=== PATIENT | female | born 1950 | race Caucasian/White ===

== ENCOUNTER 2020-08-22 15:00 | Inpatient (IN) ==
[2020-08-22] MEDS ORDERED: SODIUM CHLORIDE 0.9% 1000ML 2,000 ML IV ONE (16:01)
--- NOTE | 2020-08-22 16:05 | Emergency Department Note ---
Impression & Plan Acute Lyme disease, Fever and chills, Tick-borne disease ED Provider Note NAME: BURKE OSEGUERA AGE: 69 SEX: F : 1950 ARRIVES VIA: Walk-In INFORMANT: Patient ED PROVIDER(S): Hieu Barksdale DO CHIEF COMPLAINT: Shaking chills HPI: Patient is a 69-year-old female who presents the ER for not feeling well. Symptoms started on Monday with dry heaving. Patient was having diarrhea and vomiting over 24 hours. This resolved on Monday. Fevers as high as 102. Patient had tick bite about 3 weeks ago. She is now having chills. Patient was placed on Doxy and took a full dose on Monday and Monday. Patient does admit to a headache. No neck stiffness. No chest pain or shortness of breath. No cough or runny nose. No other exacerbating or remitting factors. ROS: See above HPI for pertinent positives & negatives. A total of 10 systems reviewed and were otherwise negative. PAST MEDICAL HISTORY:See Below PAST SURGICAL HISTORY:See Below FAMILY HISTORY:See Below SOCIAL HISTORY:See Below HOME MEDICATIONS:See Below ALLERGIES:See Below VITALS:See Below PHYSICAL EXAMINATION: GENERAL: Sitting up in bed, alert, well appearing, well nourished, no distress, non-toxic EYE EXAM: normal conjunctiva. PERRL and EOM's grossly intact. OROPHARYNX: no exudate, no erythema, lips, buccal mucosa, and tongue normal and mucous membranes are moist NECK: supple, no nuchal rigidity, no adenopathy, non-tender LUNGS: Clear to auscultation. Normal chest wall mechanics HEART: no murmurs, S1 normal and S2 normal ABDOMEN: abdomen soft, non-tender, normo-active bowel sounds, no masses, no rebound or guarding. BACK: Back is symmetrical on inspection and there is no deformity, no midline tenderness, no CVA tenderness. SKIN: no rashes and no bruising UPPER EXTREMITIES: upper extremities are grossly normal. LOWER EXTREMITIES: No pitting edema. NEURO EXAM: Normal sensorium, cranial nerves II-XII grossly intact, normal speech, no gross weakness of arms, no gross weakness of legs. MEDICAL DECISION MAKING: Patient is a six 9-year-old female who presents the ER for the above-stated complaint. IV was damaged but obtained. Labs showed no significant leukocytosis or anemia. INR unremarkable. BMP along with LFTs bilirubin and lipase is unremarkable. UA with a small amount of blood. Lyme was positive. Covid was negative. Patient was having intermittent shaking chills. CT of the abdomen pelvis was reviewed from previous presentation which showed questionable Pylo. UA was reviewed at that time was clean. Patient was updated bedside. She was given IV fluids Toradol Zofran and some Tylenol. She was discussed with the hospitalist after IV Rocephin. No nuchal rigidity. She does have a headache although I do favor this consistent with the tickborne illness as opposed to meningitis or encephalitis. Triage Nursing notes reviewed. Limited review of prior medical records performed Vital Signs: reviewed and remarkable for HTN Differential diagnosis: Differential diagnosis includes etiologies such as sepsis, UTI, pneumonia, metabolic, electrolyte abnormalities, cardiac sources, intracerebral event, toxicologic, neurological, as well as others were entertained. ER treatment provided: See below Diagnostics interpreted by me: ECG: Sinus rhythm rate 93 Normal axis T wave inversion in the inferior leads QTC 417 Septal Q waves Cardiac Monitoring: An order was placed for continuous cardiac monitoring. The monitor shows a rate of 90 with sinus rhythm. Laboratory studies: As stated above and show below. Imaging studies: See below Consultation(s): Discussed with hospitalist for further evaluation Procedures: none Critical Care: None Past Med/Surg History Social History Smoking Status: Never smoker Preferred Language: Khmer Feels Safe at Home: Yes Allergies Allergies Allergy/AdvReac Type Severity Reaction Status Date / Time erythromycin base Allergy Unknown HIVES Verified 08/20/20 23:40 Penicillins Allergy Unknown hives Verified 08/20/20 23:40 Sulfa (Sulfonamide Allergy Unknown HIVES Verified 08/20/20 23:40 Antibiotics) HONEY BEES Allergy Unknown HIVES Uncoded 08/20/20 23:40 Home Meds Home Medications Medication Instructions Recorded Confirmed hydrochlorothiazide 12.5 mg PO QAM 08/20/20 08/22/20 ibuprofen 800 mg PO TID 08/20/20 08/22/20 lisinopril 5 mg PO QAM 08/20/20 08/22/20 ondansetron 8 mg PO Q8 PRN 08/20/20 08/22/20 Previous Rx's Medication Instructions Recorded doxycycline hyclate 100 mg PO BID 21 Days #42 tab 08/21/20 Results & Data (ED) Vital Signs Vital Signs - 24 hr 08/22/20 15:03 08/22/20 17:02 08/22/20 18:21 Temperature 37.4 C Temperature Source Temporal Artery Scan Pulse Rate 93 H 82 Pulse Rate from SpO2 Sensor Respiratory Rate 20 20 Respiratory Effort / Characteristics Respiratory Depth Respiratory Pattern Blood Pressure 168/78 H 167/90 H Blood Pressure [Right Arm] 168/78 H Blood Pressure Mean 108 Blood Pressure Mean [Right Arm] 108 Blood Pressure Position Sitting Pulse Oximetry 100 94 Oxygen Delivery Method Room Air Room Air Sepsis Recent Fever Within 48 Hours No Sepsis New/Unexplained Change in Mental Status No Sepsis Action Taken by Nursing No Action Required 08/22/20 19:00 08/22/20 20:07 08/22/20 21:00 Temperature 38.5 C H Temperature Source Oral Pulse Rate 76 76 Pulse Rate from SpO2 Sensor 77 77 Respiratory Rate 22 22 Respiratory Effort / Characteristics Non-Labored Spontaneous Respiratory Depth Normal Respiratory Pattern Regular Blood Pressure 154/63 H 149/71 H Blood Pressure [Right Arm] Blood Pressure Mean 93 97 Blood Pressure Mean [Right Arm] Blood Pressure Position Pulse Oximetry 96 95 Oxygen Delivery Method Room Air Room Air Room Air Sepsis Recent Fever Within 48 Hours Sepsis New/Unexplained Change in Mental Status Sepsis Action Taken by Nursing Laboratory Data Result diagrams: 08/22/20 16:55 08/22/20 16:55 Lab Results 08/22/20 08/22/20 08/22/20 Range/Units 16:55 16:55 16:55 WBC 9.17 (4.8-10.8) K/uL RBC 3.85 L (4.2-5.4) M/uL Hgb 12.5 (12.0-16.0) g/dL Hct 37.0 (37-47) % MCV 96.1 (80-100) fL MCH 32.5 (25-34) pg MCHC 33.8 (32-36) g/dL RDW Std Deviation 43.3 (36.4-46.3) fL RDW Coeff of [place] 12.3 (11.5-14.5) % Plt Count 285 (130-400) K/uL MPV 9.6 (7.4-10.4) fL Immature Gran % (Auto) 0.2 % Neut % (Auto) 76.0 % Lymph % (Auto) 15.2 % Mineral % (Auto) 8.2 % Eos % (Auto) 0.2 % Baso % (Auto) 0.2 % Neut # (Auto) 6.97 H (1.4-6.5) K/uL Lymph # (Auto) 1.39 (1.2-3.4) K/uL Mineral # (Auto) 0.75 H (0.11-0.59) K/uL Eos # (Auto) 0.02 (0-0.5) K/uL Baso # (Auto) 0.02 (0-0.2) K/uL Immature Gran # (Auto) 0.02 (0.00-0.02) K/uL PT 10.3 (9.0-12.0) Seconds INR 1.0 (0.9-1.1) APTT 24.0 (21.0-31.0) Seconds PTT Ratio 0.9 Sodium 135 L D (136-145) mmol/L Potassium 3.6 (3.5-5.1) mmol/L Chloride 100 (98-107) mmol/L Carbon Dioxide 29 (21-32) mmol/L Anion Gap 6.0 (3-11) BUN 11 (7-18) mg/dl Creatinine 1.02 (0.6-1.2) mg/dl Est Cr Clr Drug Dosing 51.4 ml/min Est GFR ( Amer) 65.9 ml/min Est GFR (Non-Af Amer) 56.9 ml/min BUN/Creatinine Ratio 10.6 (10-20) Glucose 109 H (70-99) mg/dl Lactate (0.4-2.0) mmol/L Calcium 8.5 (8.5-10.1) mg/dl Magnesium 2.0 (1.8-2.4) mg/dl Total Bilirubin 0.3 (0.2-1) mg/dl AST 12 L (15-37) U/L ALT 17 (12-78) U/L Alkaline Phosphatase 64 (45-117) U/L Total Protein 6.9 (6.4-8.2) gm/dl Albumin 3.6 (3.4-5.0) gm/dl Globulin 3.3 (2.5-4.0) gm/dl Albumin/Globulin Ratio 1.1 (0.9-2) Lipase 162 (73-393) U/L Urine Color Urine Appearance (Clear) Urine pH (4.5-7.5) Ur Specific [place] (1.000-1.030) Urine Protein (Negative) Urine Glucose (UA) (Negative) Urine Ketones (Negative) Urine Blood (Negative) Urine Nitrite (Negative) Urine Bilirubin (Negative) Urine Urobilinogen (Negative) Ur Leukocyte Esterase (Negative) Urine WBC (Auto) (0-5) /hpf Urine RBC (Auto) (0-4) /hpf U Hyaline Cast (Auto) (0-5) /lpf U Epithel Cells (Auto) (0-5) /lpf Urine Bacteria (Auto) (Negative) Anaplasma Smear Lyme Disease IgG Ab (Negative) Lyme Disease IgM Ab (Negative) COVID-19 Eval Order SARS-CoV-2 (PCR) (Negative) 08/22/20 08/22/20 08/22/20 Range/Units 16:55 16:55 16:57 WBC (4.8-10.8) K/uL RBC (4.2-5.4) M/uL Hgb (12.0-16.0) g/dL Hct (37-47) % MCV (80-100) fL MCH (25-34) pg MCHC (32-36) g/dL RDW Std Deviation (36.4-46.3) fL RDW Coeff of Savana (11.5-14.5) % Plt Count (130-400) K/uL MPV (7.4-10.4) fL Immature Gran % (Auto) % Neut % (Auto) % Lymph % (Auto) % Mineral % (Auto) % Eos % (Auto) % Baso % (Auto) % Neut # (Auto) (1.4-6.5) K/uL Lymph # (Auto) (1.2-3.4) K/uL Mineral # (Auto) (0.11-0.59) K/uL Eos # (Auto) (0-0.5) K/uL Baso # (Auto) (0-0.2) K/uL Immature Gran # (Auto) (0.00-0.02) K/uL PT (9.0-12.0) Seconds INR (0.9-1.1) APTT (21.0-31.0) Seconds PTT Ratio Sodium (136-145) mmol/L Potassium (3.5-5.1) mmol/L Chloride (98-107) mmol/L Carbon Dioxide (21-32) mmol/L Anion Gap (3-11) BUN (7-18) mg/dl Creatinine (0.6-1.2) mg/dl Est Cr Clr Drug Dosing ml/min Est GFR ( Amer) ml/min Est GFR (Non-Af Amer) ml/min BUN/Creatinine Ratio (10-20) Glucose (70-99) mg/dl Lactate 1.7 (0.4-2.0) mmol/L Calcium (8.5-10.1) mg/dl Magnesium (1.8-2.4) mg/dl Total Bilirubin (0.2-1) mg/dl AST (15-37) U/L ALT (12-78) U/L Alkaline Phosphatase (45-117) U/L Total Protein (6.4-8.2) gm/dl Albumin (3.4-5.0) gm/dl Globulin (2.5-4.0) gm/dl Albumin/Globulin Ratio (0.9-2) Lipase (73-393) U/L Urine Color Yellow Urine Appearance Clear (Clear) Urine pH 7.0 (4.5-7.5) Ur Specific [place] 1.012 (1.000-1.030) Urine Protein Negative (Negative) Urine Glucose (UA) Negative (Negative) Urine Ketones Negative (Negative) Urine Blood Trace H (Negative) Urine Nitrite Negative (Negative) Urine Bilirubin Negative (Negative) Urine Urobilinogen Negative (Negative) Ur Leukocyte Esterase Negative (Negative) Urine WBC (Auto) 0 (0-5) /hpf Urine RBC (Auto) 0-4 (0-4) /hpf U Hyaline Cast (Auto) 0 (0-5) /lpf U Epithel Cells (Auto) 5-10 H (0-5) /lpf Urine Bacteria (Auto) Negative (Negative) Anaplasma Smear See Comment Lyme Disease IgG Ab (Negative) Lyme Disease IgM Ab (Negative) COVID-19 Eval Order SARS-CoV-2 (PCR) (Negative) 08/22/20 08/22/20 08/22/20 Range/Units 17:01 18:52 18:52 WBC (4.8-10.8) K/uL RBC (4.2-5.4) M/uL Hgb (12.0-16.0) g/dL Hct (37-47) % MCV (80-100) fL MCH (25-34) pg MCHC (32-36) g/dL RDW Std Deviation (36.4-46.3) fL RDW Coeff of Savana (11.5-14.5) % Plt Count (130-400) K/uL MPV (7.4-10.4) fL Immature Gran % (Auto) % Neut % (Auto) % Lymph % (Auto) % Mineral % (Auto) % Eos % (Auto) % Baso % (Auto) % Neut # (Auto) (1.4-6.5) K/uL Lymph # (Auto) (1.2-3.4) K/uL Mineral # (Auto) (0.11-0.59) K/uL Eos # (Auto) (0-0.5) K/uL Baso # (Auto) (0-0.2) K/uL Immature Gran # (Auto) (0.00-0.02) K/uL PT (9.0-12.0) Seconds INR (0.9-1.1) APTT (21.0-31.0) Seconds PTT Ratio Sodium (136-145) mmol/L Potassium (3.5-5.1) mmol/L Chloride (98-107) mmol/L Carbon Dioxide (21-32) mmol/L Anion Gap (3-11) BUN (7-18) mg/dl Creatinine (0.6-1.2) mg/dl Est Cr Clr Drug Dosing ml/min Est GFR ( Amer) ml/min Est GFR (Non-Af Amer) ml/min BUN/Creatinine Ratio (10-20) Glucose (70-99) mg/dl Lactate (0.4-2.0) mmol/L Calcium (8.5-10.1) mg/dl Magnesium (1.8-2.4) mg/dl Total Bilirubin (0.2-1) mg/dl AST (15-37) U/L ALT (12-78) U/L Alkaline Phosphatase (45-117) U/L Total Protein (6.4-8.2) gm/dl Albumin (3.4-5.0) gm/dl Globulin (2.5-4.0) gm/dl Albumin/Globulin Ratio (0.9-2) Lipase (73-393) U/L Urine Color Urine Appearance (Clear) Urine pH (4.5-7.5) Ur Specific [place] (1.000-1.030) Urine Protein (Negative) Urine Glucose (UA) (Negative) Urine Ketones (Negative) Urine Blood (Negative) Urine Nitrite (Negative) Urine Bilirubin (Negative) Urine Urobilinogen (Negative) Ur Leukocyte Esterase (Negative) Urine WBC (Auto) (0-5) /hpf Urine RBC (Auto) (0-4) /hpf U Hyaline Cast (Auto) (0-5) /lpf U Epithel Cells (Auto) (0-5) /lpf Urine Bacteria (Auto) (Negative) Anaplasma Smear Lyme Disease IgG Ab Negative (Negative) Lyme Disease IgM Ab Positive A (Negative) COVID-19 Eval Order Covid19 at [facility] SARS-CoV-2 (PCR) NEGATIVE (Negative) Administered Medications Discontinued Medications Acetaminophen (Acetaminophen 500 Mg Tab) 1,000 mg PO NOW STA Stop: 08/22/20 18:12 Last Admin: 08/22/20 20:33 Dose: 1,000 mg Documented by: [id number] Famotidine (Famotidine 20mg/5ml Iv Push) 20 mg IV ONE STA Stop: 08/22/20 18:12 Last Admin: 08/22/20 18:48 Dose: 20 mg Documented by: [id number] Sodium Chloride (Nss 1000ml) 2,000 mls @ 999 mls/hr IV .Q2H1M ONE Stop: 08/22/20 18:01 Last Infusion: 08/22/20 20:11 Dose: 0 mls/hr Documented by: [id number] Admin: 08/22/20 17:00 Dose: 999 mls/hr Documented by: [id number] Ceftriaxone Sodium (Rocephin) 1,000 mg in 50 mls @ 100 mls/hr IV NOW STA Stop: 08/22/20 18:54 Last Infusion: 08/22/20 20:11 Dose: 0 mls/hr Documented by: [id number] Admin: 08/22/20 18:48 Dose: 100 mls/hr Documented by: [id number] Ketorolac Tromethamine (Ketorolac Tromethamine 15 Mg/Ml Vial) 10 mg IV NOW ONE Stop: 08/22/20 18:26 Last Admin: 08/22/20 18:49 Dose: 10 mg Documented by: [id number] Ondansetron HCl (Ondansetron Inj 2 Mg/Ml 2 Ml Vial) 4 mg IV NOW STA Stop: 08/22/20 19:47 Last Admin: 08/22/20 20:10 Dose: 4 mg Documented by: [id number] Imaging Data Radiologist's Impression: Chest X-Ray 08/22/20 16:02 XR chest 1V portable CLINICAL HISTORY: SEPSIS COMPARISON STUDY: 08/20/2020 FINDINGS: The cardiac and mediastinal contours are normal. There is no evidence of focal pulmonary consolidation. There is no evidence of failure. No pleural effusions are visualized.[ IMPRESSION: No active disease in the chest. ACT 112: Negative or not required by law. Electronically signed by: Sonny Blum M.D. 08/22/2020 5:55 PM Discharge Plan Visit Data Chief Complaint: Illness Stated Complaint: +lymes,shaking,nausea,cramping in legs/feet ED Provider: Hieu Barksdale Discharge Problem: Acute Lyme disease, Fever and chills, Tick-borne disease Patient Disposition: Home - Self-Care Discharge Instructions Interventions: ED Discharge Assessment Last Done: 08/22/20 18:21 Forms Stand Alone Forms: [facility], Virtual Emergency Department, Important Visit Information Prescriptions Prescriptions: No Action ibuprofen 800 mg tablet 800 mg PO TID RF: 0 ondansetron 8 mg tablet,disintegrating 8 mg PO Q8 PRN (Reason: Nausea) RF: 0 hydrochlorothiazide 12.5 mg capsule 12.5 mg PO QAM RF: 0 lisinopril 5 mg tablet 5 mg PO QAM RF: 0 doxycycline hyclate 100 mg tablet 100 mg PO BID 21 Days Qty: 42 RF: 0 Referrals Referrals: Jarrod Shi MD [Primary Care Provider] -
[2020-08-22 17:12] LABS: Basophils # (auto) 0.02 K/uL (0-0.2); Basophils % (auto) 0.2 %; Eosinophils # (auto) 0.02 K/uL (0-0.5); Eosinophils % (auto) 0.2 %; Hemoglobin 12.5 g/dL (12.0-16.0); Immature Granulocytes # (auto) 0.02 K/uL (0.00-0.02); Immature Granulocytes % (auto) 0.2 %; Lymphocytes # (auto) 1.39 K/uL (1.2-3.4); Lymphocytes % (auto) 15.2 %; Mean Corpuscular Hemoglobin 32.5 pg (25-34); Mean Corpuscular Hgb Conc 33.8 g/dL (32-36); Mean Corpuscular Volume 96.1 fL (80-100); Mean Platelet Volume 9.6 fL (7.4-10.4); Monocytes # (auto) 0.75 K/uL (0.11-0.59); Monocytes % (auto) 8.2 %; Neutrophils # (auto) 6.97 K/uL (1.4-6.5); Platelet Count 285 K/uL (130-400); RDW Coefficient of Variation 12.3 % (11.5-14.5); RDW Standard Deviation 43.3 fL (36.4-46.3); Red Blood Count 3.85 M/uL (4.2-5.4); White Blood Count 9.17 K/uL (4.8-10.8)
[2020-08-22 17:30] LABS: Appearance Urine Clear (Clear); Bacteria Urine Automated Negative (Negative); Bilirubin Urine Negative (Negative); Blood Urine Trace (Negative); Cast Urine Automated 0 /lpf (0-5); Color Urine Yellow; Glucose Urine UA Negative (Negative); Ketones Urine Negative (Negative); Leukocyte Esterase Urine Negative (Negative); Nitrite Urine Negative (Negative); Protein Urine Negative (Negative); RBC Urine Automated 0-4 /hpf (0-4); Specific Gravity Urine 1.012 (1.000-1.030); Urobilinogen Urine Negative (Negative); WBC Urine Automated 0 /hpf (0-5)
[2020-08-22 17:31] LABS: Albumin Level 3.6 gm/dl (3.4-5.0); BUN Creatinine Ratio 10.6 (10-20); Calcium 8.5 mg/dl (8.5-10.1); Creatinine Clr Calc Pharmacy 51.4 ml/min; Est GFR (African American) 65.9 ml/min; Est GFR (Non-African American) 56.9 ml/min; Potassium 3.6 mmol/L (3.5-5.1)
[2020-08-22 17:34] LABS: Albumin Globulin Ratio 1.1 (0.9-2); Bilirubin,Total 0.3 mg/dl (0.2-1); Globulin 3.3 gm/dl (2.5-4.0); Total Protein 6.9 gm/dl (6.4-8.2)
[2020-08-22 17:43] LABS: Partial Thromboplastin Ratio 0.9; Prothrombin Time 10.3 Seconds (9.0-12.0)
--- NOTE | 2020-08-22 17:57 | XRay Report ---
XR chest 1V portable CLINICAL HISTORY: SEPSIS COMPARISON STUDY: 08/20/2020 FINDINGS: The cardiac and mediastinal contours are normal. There is no evidence of focal pulmonary co nsolidation. There is no evidence of failure. No pleural effusions are visualized.[ IMPRESSION: No active disease in the chest. ACT 112: Negative or not required by law. Electronically signed by: Sonny Blum M.D. 08/22/2020 5:55 PM
[2020-08-22] MEDS ORDERED: FAMOTIDINE 20MG/5ML IV PUSH IV STA (18:11)
[2020-08-22] MEDS ORDERED: KETOROLAC TROMETHAMINE 15 MG/ML VIAL IV ONE (18:25)
[2020-08-22] MEDS ORDERED: cefTRIAXone SODIUM 1,000 MG/50 ML BAG IV STA (18:25)
--- NOTE | 2020-08-22 18:45 | History & Physical Report ---
Date of Service August 22, 2020 Assessment & Plan (1) Tick-borne disease: History of tick bite approximately 3 weeks ago. Presented with GI symptoms with diarrhea nausea vomiting for 24 hours, Had high fever, generalized weakness, Was treated with doxycycline, failed outpatient course Will be admitted to medical telemetry, ordered for Lyme titer, anaplasmosis lab work Start patient with IV Rocephin (2) Nausea & vomiting: Possible due to above, IV fluids, start with clear liquid diet, advance as tolerated order for antiemetics (3) Fever and chills: Due to tickborne illness, treatment as outlined above CODE STATUS: Full code Disposition: Expect to be discharged home when medically stable Admission and Anticipated Discharge Date Admission Date: History of Present Illness Chief Complaint: Tick bite/fever, nausea vomiting Primary Care Provider: Jarrod Shi MD Patient is a six 9-year-old female who presents the ER for not feeling well. Symptoms started on Monday with dry heaving. Patient was having diarrhea and vomiting over 24 hours. This resolved on Monday. Fevers as high as 102. Patient had tick bite about 3 weeks ago. She is now having chills. Patient was placed on Doxy and took a full dose on Monday and Monday. Patient does admit to a headache. No neck stiffness. No chest pain or shortness of breath. No cough or runny nose. Allergies Allergy/AdvReac Type Severity Reaction Status Date / Time erythromycin base Allergy Unknown HIVES Verified 08/20/20 23:40 Penicillins Allergy Unknown hives Verified 08/20/20 23:40 Sulfa (Sulfonamide Allergy Unknown HIVES Verified 08/20/20 23:40 Antibiotics) HONEY BEES Allergy Unknown HIVES Uncoded 08/20/20 23:40 Home Medications Medication Instructions Recorded Confirmed Type hydrochlorothiazide 12.5 mg PO QAM 08/20/20 08/22/20 History ibuprofen 800 mg PO TID 08/20/20 08/22/20 History lisinopril 5 mg PO QAM 08/20/20 08/22/20 History ondansetron 8 mg PO Q8 PRN 08/20/20 08/22/20 History doxycycline hyclate 100 mg PO BID 21 Days #42 tab 08/21/20 08/22/20 Rx Past Med/Surg History Social History Smoking Status: Never smoker Preferred Language: Icelandic Feels Safe at Home: Yes Review of Systems Review of Systems: All systems reviewed & are unremarkable except as noted in Subjective Physical Exam Physical Exam: Physical exam: General: No acute distress, alert awake oriented x3 HEENT: PERRLA, EOMI, Heart: Regular S1-S2, no carotid bruit, no JVD, no lower extremity edema Lungs: Clear to auscultate, no wheeze or rales Abdomen: Soft nontender, no organomegaly Extremity: No cyanosis, no deformity, normal strength 5 out of 5 with upper and lower Neuro: No focal neurological deficit normal speech, normal visual field, Motor strength : normal both upper and lower extremity, sensation intact Psych: Alert awake oriented x3, normal affect Results & Data Results & Data ([facility]) Vital Signs (Past 12 Hours) Vital Signs Temp Pulse Resp BP BP Pulse Ox 08/22/20 18:21 82 20 167/90 H 94 08/22/20 17:02 168/78 H 08/22/20 15:03 37.4 C 93 H 20 168/78 H 100 Code Status & VTE Plan VTE Prophylaxis Plan VTE Prophylaxis will be ordered: Yes (1) Nausea & vomiting Vomiting Intractability: non-intractable Vomiting type: unspecified Qualified Code(s): R11.2 - Nausea with vomiting, unspecified
[2020-08-22] MEDS: ACETAMINOPHEN 500 MG TAB PO STA ×2 (18:48→20:33)
[2020-08-22] MEDS ORDERED: ONDANSETRON INJ 2 MG/ML 2 ML VIAL IV STA (19:46)
[2020-08-22 20:22] LABS: Lyme Ab IgG w/WB Rflx Negative (Negative)
[2020-08-22 21:03] LABS: Lyme Ab IgM w/WB Rflx Positive (Negative)
[2020-08-22] MEDS ORDERED: ONDANSETRON INJ 2 MG/ML 2 ML VIAL IV PRN (22:53)
[2020-08-22] MEDS ORDERED: SODIUM CHLORIDE 0.9% 1000ML 1,000 ML IV SCH (23:15)
[2020-08-22] MEDS: IBUPROFEN 800 MG TAB PO SCH ×2 (23:35→23:36)
[2020-08-23] MEDS: IBUPROFEN 800 MG TAB PO SCH ×4 (00:04→20:13)
[2020-08-23] MEDS: ACETAMINOPHEN 325 MG TAB PO PRN ×2 (06:03→15:21)
[2020-08-23 07:05] LABS: Hematocrit (blood only) 32.9 % (37-47); Hemoglobin 11.5 g/dL (12.0-16.0); Mean Corpuscular Hemoglobin 33.5 pg (25-34); Mean Corpuscular Volume 95.9 fL (80-100); Mean Platelet Volume 9.6 fL (7.4-10.4); Platelet Count 264 K/uL (130-400); RDW Coefficient of Variation 12.3 % (11.5-14.5); RDW Standard Deviation 42.9 fL (36.4-46.3); Red Blood Count 3.43 M/uL (4.2-5.4); White Blood Count 8.89 K/uL (4.8-10.8)
[2020-08-23] MEDS: lisinopril 5 MG TAB PO SCH (08:08)
[2020-08-23] MEDS: KETOROLAC TROMETHAMINE 15 MG/ML VIAL IV PRN ×2 (08:13→16:28)
[2020-08-23] MEDS ORDERED: hydroCHLOROthiazide 25 MG TAB PO SCH (09:00)
[2020-08-23] MEDS ORDERED: DOCUSATE SODIUM 100 MG CAP PO PRN (09:40)
--- NOTE | 2020-08-23 09:41 | Electrocardiogram Report ---
Test Reason : Blood Pressure : / mmHG Vent. Rate : 093 BPM Atrial Rate : 093 BPM P-R Int : 136 ms QRS Dur : 076 ms QT Int : 336 ms P-R-T Axes : 065 032 016 degrees QTc Int : 417 ms Poor data quality, interpretation may be adversely affected Normal sinus rhythm Nonspecific T wave abnormality Abnormal ECG When compared with ECG of 21-AUG-2020 00:29, No significant change was found Confirmed by Tarki Moay ([id number]) on 08/23/2020 9:41:33 AM Referred By: REFERRED SELF Confirmed By:Tarik Moya
[2020-08-23] MEDS: POLYETHYLENE (MIRALAX) 17 GM PACK PO PRN (10:00)
[2020-08-23] MEDS: ONDANSETRON 8MG OD TAB PO PRN (15:45)
[2020-08-23] MEDS ORDERED: cefTRIAXone SODIUM 2,000 MG in DEXTROSE 5% 50 ML IV SCH (18:00)
[2020-08-23] MEDS ORDERED: VANCOMYCIN CONSULT ACTIVE PRN (19:17)
[2020-08-23] MEDS ORDERED: VANCOMYCIN HCL 1,750 MG in SODIUM CHLORIDE 0.9% 500 ML IV ONE (20:00)
--- NOTE | 2020-08-23 20:38 | Hospitalist Progress Note ---
Date of Service August 23, 2020 Assessment & Plan (1) Tick-borne disease: Lyme disease : Lyme IgM positive History of tick bite approximately 3 weeks ago. Presented with GI symptoms with diarrhea nausea vomiting for 24 hours, Had high fever, generalized weakness, Was treated with doxycycline, failed outpatient course started with IV Rocephin , improvement of symptoms noted since admission , has been afebrile , weakness , fatigue , headache has resolved cont IV rocephin for 1 more day before transition to PO dxycycline will need 10 days tx Gram positive bacteremia: 1 bottle positive for gram positive cocci in cluster started on Iv vancomycin will order repeat blood cx in 24 hrs ECHO ordered to eval for endocarditis Neck pain with left arm radicular pain : ordered for Ct cervical neck pain control ordered Lidoderm patch (2) Nausea & vomiting: Possible due to above, GI symptoms has resolved tolerating solid diet , appetite improved (3) Fever and chills: Due to tickborne illness, symptoms has resolved CODE STATUS: Full code Disposition: Expect to be discharged home when medically stable Admission and Anticipated Discharge Date Admission Date: August 22, 2020 Subjective Follow up visit for fever/chills /Headache /lyme disease : pt reports feeling much better since yesterday no fever since admission headache has resolved improvement of generalized weakness , fatigue , appetite has improved , no abdominal pain or nausea , tolerating diet having persistent neck pain with numbness /tingling /pain radiation to left arm feels like " pinched nerve " Review of Systems Review of Systems: All systems reviewed & are unremarkable except as noted in Subjective Physical Exam Physical Exam: Physical exam: General: No acute distress, alert awake oriented x3 HEENT: PERRLA, EOMI, Heart: Regular S1-S2, no carotid bruit, no JVD, no lower extremity edema Lungs: Clear to auscultate, no wheeze or rales Abdomen: Soft nontender, no organomegaly Extremity: No cyanosis, no deformity, normal strength 5 out of 5 with upper and lower Neuro: No focal neurological deficit normal speech, normal visual field, Motor strength : normal both upper and lower extremity, sensation intact Psych: Alert awake oriented x3, normal affect Results & Data Results & Data ([facility]) Vital Signs (Past 12 Hours) Vital Signs Temp Pulse Pulse Resp BP Pulse Ox 08/23/20 19:02 36.8 C 76 19 145/77 H 96 08/23/20 15:25 37.2 C 86 19 165/75 H 96 08/23/20 15:10 82 08/23/20 11:34 36.7 C 76 19 136/79 96 (1) Nausea & vomiting Vomiting Intractability: non-intractable Vomiting type: unspecified Qualif ied Code(s): R11.2 - Nausea with vomiting, unspecified
[2020-08-23] MEDS: LIDOCAINE 5% 1 PATCH TD SCH (20:59)
[2020-08-24] MEDS: KETOROLAC TROMETHAMINE 15 MG/ML VIAL IV PRN (01:39)
[2020-08-24] MEDS: POLYETHYLENE (MIRALAX) 17 GM PACK PO PRN (04:38)
[2020-08-24 07:09] LABS: BUN Creatinine Ratio 9.5 (10-20); Calcium 8.9 mg/dl (8.5-10.1); Creatinine Clr Calc Pharmacy 56.4 ml/min; Est GFR (African American) 74.7 ml/min; Est GFR (Non-African American) 64.4 ml/min; Potassium 3.5 mmol/L (3.5-5.1)
[2020-08-24] MEDS: lisinopril 5 MG TAB PO SCH (08:37)
--- NOTE | 2020-08-24 10:30 | Pharmacy Report ---
Pharmacy Abx Initial Consult - Date of Service August 24, 2020 - Pharmacy Dosing Scope Date of Consult: 08/23/20 Consultation requested by: Dr. Zhao Pharmacy is consulted to initiate vancomycin IV dosing therapy, order appropriate labs and adjust drug dose/frequency. - Subjective The patient is a 69 year old F admitted on 08/22/20 18:44. - Objective Height: 5 ft 3 in Weight: 72 kg Vital Signs (Past 12hrs): Vital Signs Temp Pulse Pulse Pulse Resp BP BP 08/24/20 07:39 36.8 C 85 17 144/79 H 08/24/20 07:13 62 08/24/20 03:25 36.6 C 76 20 128/74 08/23/20 23:42 65 08/23/20 23:08 36.7 C 76 20 153/77 H Pulse Ox 08/24/20 07:39 94 08/24/20 07:13 08/24/20 03:25 97 08/23/20 23:42 08/23/20 23:08 98 Lab Results (24hrs): Laboratory Tests (24 Hours) 08/24/20 05:47 Creatinine 0.92 Est Cr Clr Drug Dosing 56.4 Micro Results: 08/22/20 16:55 Anaerobic Blood Culture - Final Blood - Assessment & Plan Assessment 69 year old F ordered empiric vancomycin and ceftriaxone for treatment of gram- positive cocci bacteremia and possible tick-borne disease. Patient reports tick bite about 3 weeks ago, subsequently failed outpatient doxycycline. Presented to ED on 08/23 with chills, fever (Tmax 38.5 C), and nausea/vomiting. Blood cultures at this time growing gram-positive cocci clusters in one and coagulase negative Staphylococcus not lugdunensis in the other. Empiric vancomycin okay at this time - will follow culture and suggest de-escalation as appropriate. RELL ordered for today. Of note, patient does have multiple allergies, penicillins, sulfonamide ant ibiotics, and erythromycin (all causing hives). Tolerating ceftriaxone. Plan Vancomycin IV * Loading dose: 1750 mg (24 mg/kg) * Maintenance dose: 1500 mg IV (20 mg/kg) every 24 hours * Goal trough level for gram-positive bacteremia (unknown source) : 15 to 20 mcg/mL (Ctrough,ss: 14.9 mg/L) * Exposure target: AUC24 (range)400-600 mg/L.hr (AUC24,ss: 522 mg/L.hr, PAUC*: 78 %) * Will obtain vancomycin trough once at steady-state Ceftriaxone IV * 2 g IV q24h - appropriate Pharmacy will continue to follow and will adjust dose/frequency as necessary. Thank you.
--- NOTE | 2020-08-24 11:44 | CT Scan Report ---
CT SCAN OF THE CERVICAL SPINE CLINICAL HISTORY: Bilateral neck pain. COMPARISON STUDY: No priors. TECHNIQUE: CT scan of the cervical spine is performed from the skull base to the upper thoracic spine . Images are reviewed in the axial, sagittal, and coronal planes. IV contrast was not administered fo r this examination. A dose lowering technique was utilized adhering to the principles of ALARA. CT DOSE: 197.11 mGy.cm FINDINGS: Skeletal structures: The skeletal structures are osteopenic. There is no evidence of fracture or subl uxation involving the cervical spine. Vertebral body height and alignment are maintained throughout t he cervical spine. There is minimal anterolisthesis at C7-T1. Small anterior osteophytes are seen thr oughout. There is straightening of the cervical lordosis with mild reversal centered at C4-C5. The od ontoid process and lateral masses are intact. The atlantoaxial articulation is preserved noting produ ctive degenerative change. The spinous processes appear intact. There is moderate right neural forami nal stenosis at C5-C6 largely secondary to uncovertebral arthropathy. Intervertebral discs: There is mild multilevel disc space narrowing, greatest at C5-C6. Central canal: Posterior disc osteophyte complexes are seen at all levels between C3-C4 and C6-C7. Th is may contribute to mild multilevel acquired compromise of the central canal. Soft tissues: The prevertebral and paraspinous soft tissues are within normal limits. A 9 mm low-atte nuation nodule is noted in the right lobe of the thyroid gland. Calvarium: The visualized calvarium at the skull base appears intact. Brain parenchyma: Partially visualized brain parenchyma at the skull base is within normal limits. Mastoid: Well pneumatized. Lung apices: Clear as visualized. IMPRESSION: 1. No acute bony abnormality is seen involving the cervical spine. 2. Mild spondylotic change as above. ACT 112: Negative or not required by law. Electronically signed by: Geoff Muller M.D. 08/24/2020 11:43 AM
[2020-08-24] MEDS: ACETAMINOPHEN 325 MG TAB PO PRN (14:04)
[2020-08-24] MEDS: ONDANSETRON 8MG OD TAB PO PRN (14:06)
[2020-08-24] MEDS: VANCOMYCIN HCL 1,500 MG in SODIUM CHLORIDE 0.9% 500 ML IV SCH ×2 (14:06→14:07)
[2020-08-24] MEDS ORDERED: hydroCHLOROthiazide 25 MG TAB PO STA (15:53)
--- NOTE | 2020-08-24 15:56 | Hospitalist Progress Note ---
Date of Service August 24, 2020 Assessment & Plan (1) Tick-borne disease: Lyme disease : Lyme IgM positive History of tick bite approximately 3 weeks ago. Presented with GI symptoms with diarrhea nausea vomiting for 24 hours, Had high fever, generalized weakness, Was treated with doxycycline, failed outpatient course started with IV Rocephin , improvement of symptoms noted since admission , has been afebrile , weakness , fatigue , headache has resolved d/ce IV rocephin transitioned to PO doxycycline will need total 10 days tx Gram positive bacteremia: 2 bottle positive for gram positive cocci in cluster started on Iv vancomycin repeat blood cx ordered ECHO ordered to eval for endocarditis ID consult requested Neck pain with left arm radicular pain : CT of cervical neck : CT of cervical spine shows minimal DJD: Minimum anterolisthesis at C7-T1, PT/OT eval no spinal surgery procedure needed l ordered Lidoderm patch (2) Nausea & vomiting: Possible due to above, GI symptoms has completely resolved tolerating solid diet , appetite improved (3) Fever and chills: Due to tickborne illness, symptoms has resolved CODE STATUS: Full code Disposition: Expect to be discharged to home possibly tomorrow Admission and Anticipated Discharge Date Admission Date: August 22, 2020 Physical Exam Physical Exam: Physical exam: General: No acute distress, alert awake oriented x3 HEENT: PERRLA, EOMI, Heart: Regular S1-S2, no carotid bruit, no JVD, no lower extremity edema Lungs: Clear to auscultate, no wheeze or rales Abdomen: Soft nontender, no organomegaly Extremity: No cyanosis, no deformity, normal strength 5 out of 5 with upper and lower Neuro: No focal neurological deficit normal speech, normal visual field, Motor strength : normal both upper and lower extremity, sensation intact Psych: Alert awake oriented x3, normal affect Results & Data Results & Data ([facility]) Vital Signs (Past 12 Hours) Vital Signs Temp Pulse Pulse Pulse Resp BP BP 08/24/20 14:50 37.0 C 87 20 161/77 H 08/24/20 12:25 36.6 C 84 17 154/80 H 08/24/20 07:39 36.8 C 85 17 144/79 H 08/24/20 07:13 62 Pulse Ox 08/24/20 14:50 96 08/24/20 12:25 99 08/24/20 07:39 94 06/14/21 07:13 (1) Nausea & vomiting Vomiting Intractability: non-intractable Vomiting type: unspecified Qualified Code(s): R11.2 - Nausea with vomiting, unspecified
[2020-08-24] MEDS ORDERED: Nursing to Pharmacy Communication SCH (16:30)
[2020-08-24] MEDS ORDERED: cefTRIAXone SODIUM 2,000 MG in DEXTROSE 5% 50 ML IV ONE (18:00)
[2020-08-24] MEDS ORDERED: CYCLOBENZAPRINE HCL 10 MG TAB PO PRN (18:31)
--- NOTE | 2020-08-24 18:34 | Communication Note ---
Date of Service: August 24, 2020 pt reports of improvement of neck pain after ordering Lidoderm patch possible musculoskeletal component of neck pain CT cervical spine does not show evidence of significant pathology ordered for heating pad as needed gram positive bacteremia : cont IV vanco ECHO shows no evidence of endocarditis appreciate input from ID : recommends to cont current regimen till final isolation of organisms available updated at bedside
[2020-08-24] MEDS ORDERED: traMADol HCL 50 MG TABLET PO PRN (18:36)
[2020-08-24] MEDS: LIDOCAINE 5% 1 PATCH TD SCH (20:06)
[2020-08-24] MEDS ORDERED: DOXYCYCLINE HYCLATE 100 MG CAP PO SCH (21:00)
[2020-08-25] MEDS: hydroCHLOROthiazide 25 MG TAB PO SCH (08:12)
[2020-08-25] MEDS: lisinopril 5 MG TAB PO SCH (08:12)
[2020-08-25] MEDS: VANCOMYCIN HCL 1,500 MG in SODIUM CHLORIDE 0.9% 500 ML IV SCH (15:59)
[2020-08-25] MEDS ORDERED: Nursing to Pharmacy Communication SCH (16:45)
--- NOTE | 2020-08-25 17:00 | Hospitalist Progress Note ---
Date of Service August 25, 2020 Assessment & Plan (1) Tick-borne disease: Lyme disease : Lyme IgM positive History of tick bite approximately 3 weeks ago. Presented with GI symptoms with diarrhea nausea vomiting for 24 hours, Had high fever, generalized weakness, Was treated with doxycycline, failed outpatient course started with IV Rocephin , improvement of symptoms noted since admission , has been afebrile , weakness , fatigue , headache has resolved d/ce IV rocephin transitioned to PO doxycycline will need total 10 days tx Gram positive bacteremia: 2 bottle positive for gram positive cocci in cluster started on Iv vancomycin repeat blood cx ordered ECHO ordered to eval for endocarditis ID consult requested Neck pain with left arm radicular pain : CT of cervical neck : CT of cervical spine shows minimal DJD: Minimum anterolisthesis at C7-T1, PT/OT eval no spinal surgery procedure needed l ordered Lidoderm patch (2) Nausea & vomiting: Possible due to above, GI symptoms has completely resolved tolerating solid diet , appetite improved (3) Fever and chills: Due to tickborne illness, symptoms has resolved CODE STATUS: Full code Disposition: Expect to be discharged to home possibly tomorrow Admission and Anticipated Discharge Date Admission Date: August 22, 2020 Subjective Follow up visit for fever/chills /Headache /lyme disease : pt reports feeling much better since yesterday no fever since admission headache has resolved improvement of generalized weakness , fatigue , appetite has improved , no abdominal pain or nausea , tolerating diet having persistent neck pain with numbness /tingling /pain radiation to left arm feels like " pinched nerve " Physical Exam Physical Exam: Physical exam: General: No acute distress, alert awake oriented x3 HEENT: PERRLA, EOMI, Heart: Regular S1-S2, no carotid bruit, no JVD, no lower extremity edema Lungs: Clear to auscultate, no wheeze or rales Abdomen: Soft nontender, no organomegaly Extremity: No cyanosis, no deformity, normal strength 5 out of 5 with upper and lower Neuro: No focal neurological deficit normal speech, normal visual field, Motor strength : normal both upper and lower extremity, sensation intact Psych: Alert awake oriented x3, normal affect Results & Data Results & Data ([facility]) Vital Signs (Past 12 Hours) Vital Signs Temp Pulse Resp BP Pulse Ox 08/25/20 15:35 37.0 C 78 19 131/64 98 08/25/20 07:50 36.8 C 61 20 138/82 94 (1) Nausea & vomiting Vomiting Intractability: non-intractable Vomiting type: unspecified Qualified Code(s): R11.2 - Nausea with vomiting, unspecified
[2020-08-25] MEDS ORDERED: cefTRIAXone SODIUM 2,000 MG in DEXTROSE 5% 50 ML IV SCH (18:00)
[2020-08-25] MEDS: LIDOCAINE 5% 1 PATCH TD SCH (20:31)
[2020-08-26 06:43] LABS: Creatinine Clr Calc Pharmacy 66.6 ml/min; Est GFR (African American) 91.2 ml/min; Est GFR (Non-African American) 78.7 ml/min
[2020-08-26] MEDS: hydroCHLOROthiazide 25 MG TAB PO SCH (10:43)
[2020-08-26] MEDS: lisinopril 5 MG TAB PO SCH (10:45)
--- NOTE | 2020-08-26 12:21 | Discharge Summary ---
Date of Service August 26, 2020 Admission HPI Per Admitting Provider Patient is a six 9-year-old female who presents the ER for not feeling well. Symptoms started on Monday with dry heaving. Patient was having diarrhea and vomiting over 24 hours. This resolved on Monday. Fevers as high as 102. Patient had tick bite about 3 weeks ago. She is now having chills. Patient was placed on Doxy and took a full dose on Monday and Monday. Patient does admit to a headache. No neck stiffness. No chest pain or shortness of breath. No cough or runny nose. Admission Exam Per Admitting Provider General: No acute distress, alert awake oriented x3 HEENT: PERRLA, EOMI, Heart: Regular S1-S2, no carotid bruit, no JVD, no lower extremity edema Lungs: Clear to auscultate, no wheeze or rales Abdomen: Soft nontender, no organomegaly Extremity: No cyanosis, no deformity, normal strength 5 out of 5 with upper and lower Neuro: No focal neurological deficit normal speech, normal visual field, Motor strength : normal both upper and lower extremity, sensation intact Psych: Alert awake oriented x3, normal affect Principal Diagnosis Tick-borne disease Lyme disease Discharge Exam General: No acute distress, alert awake oriented x3 HEENT: PERRLA, EOMI, Heart: Regular S1-S2, no carotid bruit, no JVD, no lower extremity edema Lungs: Clear to auscultate, no wheeze or rales Abdomen: Soft nontender, no organomegaly Extremity: No cyanosis, no deformity, normal strength 5 out of 5 with upper and lower Neuro: No focal neurological deficit normal speech, normal visual field, Motor strength : normal both upper and lower extremity, sensation intact Psych: Alert awake oriented x3, normal affect Discharge Data Allergies Allergy/AdvReac Type Severity Reaction Status Date / Time erythromycin base Allergy Unknown HIVES Verified 08/20/20 23:40 Penicillins Allergy Unknown hives Verified 08/20/20 23:40 Sulfa (Sulfonamide Allergy Unknown HIVES Verified 08/20/20 23:40 Antibiotics) HONEY BEES Allergy Unknown HIVES Uncoded 08/20/20 23:40 Consultations 08/22/20 18:25 ED Decision to Admit Stat 08/24/20 09:51 Consult Infectious Diseases Routine Ordered Studies 08/24/20 09:00 CT cervical spine wo con Routine CT SCAN OF THE CERVICAL SPINE CLINICAL HISTORY: Bilateral neck pain. COMPARISON STUDY: No priors. TECHNIQUE: CT scan of the cervical spine is performed from the skull base to the upper thoracic spine. Images are reviewed in the axial, sagittal, and coronal planes. IV contrast was not administered for this examination. A dose lowering technique was utilized adhering to the principles of ALARA. CT DOSE: 197.11 mGy.cm FINDINGS: Skeletal structures: The skeletal structures are osteopenic. There is no evidence of fracture or subluxation involving the cervical spine. Vertebral body height and alignment are maintained throughout the cervical spine. There is minimal anterolisthesis at C7-T1. Small anterior osteophytes are seen throughout. There is straightening of the cervical lordosis with mild reversal centered at C4-C5. The odontoid process and lateral masses are intact. The atlantoaxial articulation is preserved noting productive degenerative change. The spinous processes appear intact. There is moderate right neural foraminal stenosis at C5-C6 largely secondary to uncovertebral arthropathy. Intervertebral discs: There is mild multilevel disc space narrowing, greatest at C5-C6. Central canal: Posterior disc osteophyte complexes are seen at all levels between C3-C4 and C6-C7. This may contribute to mild multilevel acquired compromise of the central canal. Soft tissues: The prevertebral and paraspinous soft tissues are within normal limits. A 9 mm low-attenuation nodule is noted in the right lobe of the thyroid gland. Calvarium: The visualized calvarium at the skull base appears intact. Brain parenchyma: Partially visualized brain parenchyma at the skull base is within normal limits. Mastoid: Well pneumatized. Lung apices: Clear as visualized. IMPRESSION: 1. No acute bony abnormality is seen involving the cervical spine. 2. Mild spondylotic change as above. ACT 112: Negative or not required by law. Electronically signed by: Geoff Muller M.D. 08/24/2020 11:43 AM Dictated: 08/24/20 1138Transcribed: 08/24/20 1138 XR chest 1V portable CLINICAL HISTORY: SEPSIS COMPARISON STUDY: 08/20/2020 FINDINGS: The cardiac and mediastinal contours are normal. There is no evidence of focal pulmonary consolidation. There is no evidence of failure. No pleural effusions are visualized.[ IMPRESSION: No active disease in the chest. ACT 112: Negative or not required by law. Electronically signed by: Sonny Blum M.D. 08/22/2020 5:55 PM Dictated: 08/22/[id number]: 08/22/201754 Hospital Course (1) Tick-borne disease: Lyme disease : Lyme IgM positive History of tick bite approximately 3 weeks ago. Presented with GI symptoms with diarrhea nausea vomiting for 24 hours, Had high fever, generalized weakness, Was treated with doxycycline, failed outpatient course started with IV Rocephin , improvement of symptoms noted since admission , has been afebrile , weakness , fatigue , headache has resolved d/ce IV rocephin transitioned to PO doxycycline will need total 10 days tx Gram positive bacteremia: 2 bottle positive for gram positive cocci in cluster started on Iv vancomycin repeat blood cx ordered ECHO ordered to eval for endocarditis ID consult requested Neck pain with left arm radicular pain : CT of cervical neck : CT of cervical spine shows minimal DJD: Minimum anterolisthesis at C7-T1, PT/OT eval no spinal surgery procedure needed l ordered Lidoderm patch (2) Nausea & vomiting: Possible due to above, GI symptoms has completely resolved tolerating solid diet , appetite improved (3) Fever and chills: Due to tickborne illness, symptoms has resolved CODE STATUS: Full code Disposition: Expect to be discharged to home possibly tomorrow Total Time Total Time Spent Total Time Spent (In Minutes): 35 minutes Total Time Includes: Examination of the Patient, Discharge Planning, Medication Reconciliation, Communication With Other Providers and Other Discharge Plan Discharge Items Patient Disposition: Home - Self-Care Reason For Visit: FEVER /DIARRHEA Discharge Diagnosis: Lyme disease Activity: Resume your previous activity Non-emergency contact: Primary Care Provider Call non-emergency contact if: you have any medication questions Follow-up/Referrals: Jarrod Shi MD [Primary Care Provider] - (Date & Time 09/01/2020 11:00 AM Provider Jarrod Shi MD Department Family Practice [facility] ) Diet: Regular Addtl Attending Provider Instructions: Please take all medications as instructed on discharge list below. It is recommended that you follow-up with your primary care physician within 1-2 weeks of hospital discharge to ensure you are still doing well. Please call if you have any questions or problems. You can reach a [facility] hospitalist on duty at [facility] 24 hours a day by calling [phone] Pending Studies at Discharge: No Stand-Alone Forms: My [facility], Smoking Cessation Medications and DC Order Prescriptions: New cyclobenzaprine 10 mg Tablet 10 mg PO Q8 PRN (Reason: muscle spasm) Qty: 90 RF: 0 doxycycline hyclate 100 mg capsule 100 mg PO BID 21 Days Qty: 42 RF: 0 Continued ibuprofen 800 mg tablet 800 mg PO TID RF: 0 ondansetron 8 mg tablet,disintegrating 8 mg PO Q8 PRN (Reason: Nausea) RF: 0 hydrochlorothiazide 12.5 mg capsule 12.5 mg PO QAM RF: 0 lisinopril 5 mg tablet 5 mg PO QAM RF: 0 Discontinued doxycycline hyclate 100 mg tablet 100 mg PO BID 21 Days Qty: 42 RF: 0 Discharge Orders: Discharge Order (Routine); Ordered 08/26/20 Ordered By: Jenna Barnes/Other Patient Handouts: Preventing Lyme Disease, Tick Bites, ED Lyme Disease Admission Data Admit Date/Time: 08/22/20 18:44 Attending Provider: Carla Trujillo Admit Provider: Jenna Godinez Primary Care Provider: Jarrod Shi Other Providers: Jenna Godinez ; Cleve Rogers ; Elmer Brooks ; Gómez Friend I. ; Farrukh Munoz II ; Sophie Han ; Zac Stout
[2020-08-26] MEDS ORDERED: VANCOMYCIN TROUGH ONE (13:30)
[2020-08-27 16:32] LABS: 18KDIGG Band NON-REACTIVE; 23KDIGG Band NON-REACTIVE; 23KDIGM Band REACTIVE; 28KDIGG Band NON-REACTIVE; 30KDIGG Band NON-REACTIVE; 39KDIGG Band REACTIVE; 39KDIGM Band NON-REACTIVE; 41KDIGG Band REACTIVE; 41KDIGM Band NON-REACTIVE; 45KDIGG Band NON-REACTIVE; 58KDIGG Band REACTIVE; 66KDIGG Band NON-REACTIVE; 93KDIGG Band REACTIVE; Lyme Antibodies, WB IgG NEGATIVE (NEGATIVE); Lyme Antibodies, WB IgM NEGATIVE (NEGATIVE)
== END 2020-08-26 13:42 | disposition home or self-care (01) | DRG 868 ==
LOC: ED 15:00 → SUATTDRO 18:44 → 2N 18:44 → 3W 08-25 22:21